=== PATIENT | male | born 1955 | race Caucasian/White ===

== ENCOUNTER → 2020-09-12 | Outpatient (CLI) | payer MEDICARE ==
[~2020-09-12] MED LIST: ECOTRIN81 MG PO; FISH OIL 1,0001 EACH PO; GLUCOPHAGE500 MG PO; LEVAQUIN500 MG PO; LOPRESSOR 25 MG25 MG PO; MOBIC15 MG PO; OMEPRAZOLE20 MG PO; PAXIL30 MG PO; PRAVACHOL40 MG PO; XANAX0.5 MG PO; ZESTRIL40 MG PO
== END ==
LOC: HEART 5 09:04
DX: I48.91 Unspecified atrial fibrillation (principal); R07.9 Chest pain, unspecified; I07.1 Rheumatic tricuspid insufficiency; I37.1 Nonrheumatic pulmonary valve insufficiency; R93.1 Abnormal findings on diagnostic imaging of heart and coronary circulation; Z95.0 Presence of cardiac pacemaker
CPT/HCPCS: 78452; 93306; A9502; J2785